=== PATIENT | male | born 1990 | race American Indian/Alaskan Native ===

== ENCOUNTER 2020-11-26 15:41 | Emergency (ER) | payer OTHER ==
[~2020-11-26] VITALS: Ht 180.3 cm; Wt 79.4 kg
[2020-11-26] MEDS ORDERED: HYDR1TAB94 PO (17:58)
== END 2020-11-26 17:57 | disposition home or self-care (01) ==
LOC: ER 15:41
DX: S01.511A Laceration without foreign body of lip, initial encounter (principal); W22.8XXA Striking against or struck by other objects, initial encounter
CPT/HCPCS: 12013; 99282-25